=== PATIENT | male | born 1965 | race Caucasian/White ===

== ENCOUNTER 2020-10-15 19:48 | Emergency (ER) | payer BC ==
[~2020-10-15] VITALS: Ht 180.3 cm; Wt 102.1 kg
[2020-10-15 21:55] VITALS: Ht 180.3 cm; Wt 102.1 kg
[2020-10-16 00:39] VITALS: BP 155/97
== END 2020-10-16 00:39 | disposition home or self-care (01) ==
LOC: ED 19:48
DX: R04.0 Epistaxis (principal); I10 Essential (primary) hypertension